=== PATIENT | male | born 1980 | race Caucasian/White ===

== ENCOUNTER 2025-01-23 04:24 | Inpatient (IN) | payer MEDICARE ==
[~2025-01-23] VITALS: Ht 180.3 cm; Wt 117.9 kg
[2025-01-23] VITALS (12 sets, daily range): BP systolic 154–178; BP diastolic 98–109; PULSE 82–118; RESP 14–28; TEMP 97.7–98.3; O2SAT 93–100
[2025-01-23 04:51] LABS: BASOPHILS % 0.7 % (0.0-1.0); EOSINOPHILS % 0.5 % (0.0-6.0); LYMPHOCYTES % 25.0 % (18.0-39.1); MONOCYTES % 9.2 % (4.4-11.3); NEUTROPHILS % 64.4 % (38.7-80.0); RED CELL DISTRIBUTION WIDTH 13.7 % (11.7-14.4)
[2025-01-23] MEDS: LORAZEPAM INJ 2 MG/ML VIAL IV ONE (05:04)
[2025-01-23] MEDS: MULTIVITAMINS- 12 INJECTION 10 ML, FOLIC ACID MDV 1 MG, THIAMINE HCL INJ 100 MG in SODI... IV ONE (05:04)
[2025-01-23 05:17] LABS: EST GLOMERULAR FILTRATION RATE 108.0 ML/MIN (>=60); ETHANOL 107.9 mg/dL (0.0-10.0)
[2025-01-23] MEDS ORDERED: ONDANSETRON HCL INJ 2MG/ML 2ML 2 MG/ML VIAL IV PRN (05:45)
[2025-01-23] MEDS: CHLORDIAZEPOXIDE HCL 25 MG CAP PO SCH (06:48)
[2025-01-23] MEDS ORDERED: METOPROLOL SUCC25 MG PO (09:23)
[2025-01-23] MEDS: METOPROLOL SUCCINATE 25 MG TAB XL PO SCH (10:10)
[2025-01-23 12:42] LABS: LEUKOCYTE ESTERASE ,URINE NEGATIVE (NEGATIVE); PROTEIN,URINE DIPSTICK 1+ (NEGATIVE)
[2025-01-23 12:43] LABS: AMPHETAMINES SCREEN,URINE NEGATIVE (NEGATIVE); CANNABINOIDS SCREEN,URINE NEGATIVE (NEGATIVE); COCAINE SCREEN,URINE NEGATIVE (NEGATIVE); METHADONE SCREEN, URINE NEGATIVE (NEGATIVE); OPIATES SCREEN,URINE NEGATIVE (NEGATIVE)
[2025-01-23 12:44] LABS: URINE UROBILINOGEN 0.2 mg/dL (0.2 - 1)
[2025-01-23 12:49] LABS: WBC,URINE (MAN) 0-5 /HPF (0-5)
[2025-01-23 12:50] LABS: EPITHELIAL CELLS,URINE MODERATE /LPF
[2025-01-23] MEDS: LORAZEPAM INJ 2 MG/ML VIAL IV PRN (14:17)
[2025-01-23 16:20] LABS: INR 0.92
[2025-01-23] MEDS: RIVAROXABAN 10 MG TABLET PO SCH (17:36)
[2025-01-23] MEDS: LACTATED RINGER'S 1,000 ML INJ ONE (20:57)
[2025-01-23] MEDS: ACETAMINOPHEN 325 MG TAB PO PRN (23:12)
[2025-01-24] VITALS (8 sets, daily range): BP systolic 126–161; BP diastolic 78–102; PULSE 81–88; RESP 18–20; TEMP 96.2–98.2; O2SAT 99–100
[2025-01-24] MEDS ORDERED: PANTOPRAZOLE SOD 40 MG TABEC PO SCH (07:30)
[2025-01-24 07:59] LABS: BASOPHILS % 0.3 % (0.0-1.0); EOSINOPHILS % 1.6 % (0.0-6.0); LYMPHOCYTES % 23.4 % (18.0-39.1); MONOCYTES % 11.1 % (4.4-11.3); NEUTROPHILS % 63.3 % (38.7-80.0); RED CELL DISTRIBUTION WIDTH 13.7 % (11.7-14.4)
[2025-01-24 08:12] LABS: EST GLOMERULAR FILTRATION RATE 110.0 ML/MIN (>=60)
[2025-01-24] MEDS: DIPHENHYDRAMINE HCL ELIX 25 MG/10 ML UDC PO ONE (14:19)
[2025-01-24] MEDS: QUETIAPINE FUMARATE 100 MG TAB PO SCH (20:27)
[2025-01-25] VITALS: BP 132/90; PULSE 73; RESP 20; TEMP 97.7; O2SAT 99
[2025-01-25 04:00] VITALS: BP 106/72; PULSE 75; RESP 20; TEMP 98; O2SAT 99
[2025-01-25 06:12] LABS: EST GLOMERULAR FILTRATION RATE 103.0 ML/MIN (>=60)
[2025-01-25 07:21] VITALS: BP 100/61; PULSE 73; RESP 18; TEMP 98.2; O2SAT 99
[2025-01-25 09:39] VITALS: BP 106/72; PULSE 75; RESP 18; TEMP 98.2; O2SAT 99
[2025-01-25 10:57] VITALS: BP 144/101; PULSE 78; RESP 18; TEMP 97.5; O2SAT 100
[2025-01-25 14:54] VITALS: BP 147/88; PULSE 76; RESP 18; TEMP 97.8; O2SAT 100
[2025-01-25] MEDS ORDERED: PANTOPRAZOLE SO40 MG PO (15:19)
[2025-01-25] MEDS ORDERED: CHLORDIAZEPOXID25 MG PO (15:19)
[2025-01-25] MEDS ORDERED: XARELTO10 MG PO (15:19)
== END 2025-01-25 16:20 | disposition home or self-care (01) | DRG 897 ==
LOC: ER 04:30 → ERHOLD 05:41 → ICU 08:34 → MED/SURG2 18:44
PROVIDERS: ADMIT Internal Medicine; ATTEND Internal Medicine
DX: F10.139 Alcohol abuse with withdrawal, unspecified (principal); R07.89 Other chest pain; I10 Essential (primary) hypertension; K21.9 Gastro-esophageal reflux disease without esophagitis; Z86.711 Personal history of pulmonary embolism; Z72.0 Tobacco use
CPT/HCPCS: 36415; 71045; 80048; 80053; 80178; 80307; 80320; 81001; 82550; 83690; 84484; 85025; 85610; 85730; 93005; 93306; 94799; 99252; 99284; J2060; J2470; J3411; J7030